=== PATIENT | female | born 1985 | race Asian ===

== ENCOUNTER 2024-03-04 09:36 | Emergency (ER) | payer OTHER, SELFPAY ==
--- NOTE | ~2024-03-04 | CT_ITS ---
EXAMINATION: CT cervical spine wo con DATE: 03/04/2024 11:44 INDICATION: Neck pain. Right shoulder numbness. Headache. TECHNIQUE: Computed tomography (CT) of the cervical spine was performed without intravenous contrast. Automated exposure control and iterative reconstruction technique were employed. The dose-length pro duct was 467.69 mGy-cm. COMPARISON: None FINDINGS: There is 12 degrees dextroscoliosis of cervical spine. There is mild kyphosis of cervical s pine. Vertebral body heights are normal. Intervertebral disc heights are normal. The following disc l evels are specifically discussed: C2-C3: There is no uncovertebral joint osteoarthritis. There is mild bilateral facet joint osteoarthr itis. There is no neural foraminal stenosis. There is no central canal stenosis. C3-C4: There is no uncovertebral joint osteoarthritis. There is moderate bilateral facet joint osteoa rthritis. There is mild left neural foraminal stenosis. There is no central canal stenosis. C4-C5: There is no uncovertebral joint osteoarthritis. There is no facet joint osteoarthritis. There is no neural foraminal stenosis. There is no central canal stenosis. C5-C6: There is no uncovertebral joint osteoarthritis. There is no facet joint osteoarthritis. There is no neural foraminal stenosis. There is no central canal stenosis. C6-C7: There is no uncovertebral joint osteoarthritis. There is no facet joint osteoarthritis. There is no neural foraminal stenosis. There is no central canal stenosis. C7-T1: There is no uncovertebral joint osteoarthritis. There is mild bilateral facet joint osteoarthr itis. There is no neural foraminal stenosis. There is no central canal stenosis. IMPRESSION: 1. Mild cervical spondylosis. 2. Cervical dextroscoliosis. Reviewed, dictated and finalized at location A.
--- NOTE | ~2024-03-04 | CT_ITS ---
EXAMINATION: CT brain wo con DATE: 03/04/2024 11:44 INDICATION: Headache. TECHNIQUE: Computed tomography (CT) of the head was performed without intravenous contrast. The mA wa s adjusted according to patient size. Iterative reconstruction technique was employed. The dose-lengt h product was 605.33 mGy-cm. COMPARISON: None FINDINGS: There is no intracranial hemorrhage, acute infarction, or abnormal intracranial mass lesion . The ventricles are normal in size. The orbits are normal. There is mucosal thickening in the parana shreya sinuses. There is a small right mastoid effusion. IMPRESSION: 1. Normal brain. Reviewed, dictated and finalized at location A. IMPRESSION: 1. Normal brain.
[2024-03-04 09:40] VITALS: BP 165/100; PULSE 68; RESP 18; TEMP 36.9; O2SAT 100
--- NOTE | 2024-03-04 11:10 | ED.GENADULT ---
HPI - General Adult General Chief complaint: Unspecified Stated complaint: I'm having health problems Time Seen by Provider: 03/04/24 11:07 Source: patient Mode of arrival: ambulatory Limitations: no limitations History of Present Illness HPI narrative: This is a 38-year-old female who presents to the ED for chief complaint of headache and neck pain this started over the past couple of days. Reports that the pain is intermittent but primarily located on the right side of the neck, sometimes on the left. Reports that she has had a recent cough and was treated with Z-Oumar and steroids but that is overall improving. She states that she started to see some squiggly lines in my vision? which was concerning for her today. She is reporting possible ocular migraine but does not have migraine history. Also complains of numbness/weakness only to the right shoulder. Reports that the rest of the right upper extremity is intact. Denies left-sided symptoms. Denies LOC, dysarthria, lower extremity numbness or weakness, seizures, neck stiffness, back pain. Related Data Allergies Allergy/AdvReac Type Severity Reaction Status Date / Time No Known Allergies Allergy Verified 03/04/24 12:03 Review of Systems Review of Systems: All systems as dictated in HPI Exam Narrative: GENERAL: Well-appearing, well-nourished, and in no acute distress. HEAD: Normocephalic, atraumatic. EYES: PERRLA and EOMI. No photophobia ENT: Nares clear, no rhinorrhea or epistaxis. Mucous membranes moist. Oropharynx without tonsillar hypertrophy exudate or other lesions. NECK: Supple. No adenopathy or masses. No signs of meningismus CHEST: No respiratory distress. Clear to auscultation. No wheezes rales or rhonchi HEART: Regular rate and rhythm. No murmur heard. Normal peripheral pulses. ABDOMEN: Soft, nontender, nondistended, normal active bowel sounds. MSK: Normal range of motion. No edema. SKIN: Warm, dry, no rash. NEURO: Alert and oriented x4. No focal deficits. Cranial nerves 2-12 intact. Coordination intact. No dysarthria. No nystagmus. PSYCH: Normal mood and affect. Course Course Emergency Course: Re-evaluation 1244: Patient is feeling overall improved. Neck pain and headache are much improved. She is still having a low altered sensation of the right shoulder but reports feeling maybe a little better compared to earlier. She feels well enough to go home at this point. Vital Signs Vital signs: Vital Signs Temperature 98.5 F 03/04/24 09:40 Pulse Rate 68 03/04/24 09:40 Respiratory Rate 18 03/04/24 09:40 Blood Pressure 165/100 H 03/04/24 09:40 Pulse Oximetry 100 03/04/24 09:40 Oxygen Delivery Room Air 03/04/24 09:40 Temperature 97.8 F 03/04/24 13:13 Pulse Rate 68 03/04/24 13:13 Respiratory Rate 17 03/04/24 13:13 Blood Pressure 148/97 H 03/04/24 13:13 Pulse Oximetry 98 03/04/24 13:13 Oxygen Delivery Room Air 03/04/24 09:40 Medical Decision Making MDM Narrative Medical decision making narrative: This is a 38-year-old female who presents to the ED for cough, neck pain and possible migraine. Vitals are normal. Exam shows tenderness along the paraspinal cervical spine, worse on the right. Lab work shows mildly elevated white count of 14.[address] brain and cervical spine are without acute findings. She improved greatly with headache cocktail here. Offered further evaluation in the hospital for this reported numbness to her right shoulder and visual disturbance, however she feels that this is been intermittent enough that she can go home. She does not feel she needs stay in the hospital and will follow-up with her doctor about this. Pt will be discharged in stable condition. Return precautions given and supportive measures discussed. Pt is understanding and agreeable with plan for discharge and follow-up with PCP. Vital Signs Vital Signs: Vital Signs Temperature 98.5 F 03/04/24 09:40 Pulse Rate 68 03/04/24 09:40 Respiratory Rate 18 03/04/24 09:40 Blood Pressure 165/100 H 03/04/24 09:40 Pulse Oximetry 100 03/04/24 09:40 Oxygen Delivery Room Air 03/04/24 09:40 Temperature 97.8 F 03/04/24 13:13 Pulse Rate 68 03/04/24 13:13 Respiratory Rate 17 03/04/24 13:13 Blood Pressure 148/97 H 03/04/24 13:13 Pulse Oximetry 98 03/04/24 13:13 Oxygen Delivery Room Air 03/04/24 09:40 Lab Data 03/04/24 12:08 03/04/24 12:08 Labs: Lab Results 03/04/24 Range/Units 12:08 WBC 14.1 H (4.5-10.0) K/mm3 RBC 5.43 H (4.2-5.4) M/mm3 Hgb 16.6 H (12.0-15.0) g/dL Hct 48.7 H (37.0-47.0) % MCV 89.7 (80-100) fl MCH 30.6 (26-34) pg MCHC 34.1 (32-36) g/dl RDW 12.3 (11.5-14.5) % Plt Count 266 (150-375) k/mm3 MPV 10.7 H (7.4-10.4) fl Immature Gran % (Auto) 0.6 H (0-0.5) % Neut % (Auto) 73.9 H (45.5-73.1) % Lymph % (Auto) 17.8 L (18.3-44.2) % [place] % (Auto) 6.2 (2.6-8.5) % Eos % (Auto) 1.1 (0-4.4) % Baso % (Auto) 0.4 (0.2-1.2) % Lymph # (Auto) 2.51 (0.9-3.2) K/mm3 [place] # (Auto) 0.9 H (0.1-0.6) K/mm3 Eos # (Auto) 0.2 (0-0.3) K/mm3 Baso # (Auto) 0.1 (0.0-0.1) K/mm3 Abs Immat Gran (auto) 0.08 H (0.00-0.031) K/mm3 Absolute Neuts (auto) 10.4 H (1.3-6.7) K/mm3 Absolute Nucleated RBC 0.000 (0.0-0.012) K/mm3 Nucleated RBC % 0.0 (0.0-0.2) % Sodium 137 (137-145) mmol/L Potassium 3.4 (3.4-5.0) mmol/L Chloride 98 (98-107) mmol/L Carbon Dioxide 29 (22-30) mmol/L Anion Gap 10 (4-12) mmol/L BUN 12 (7-17) mg/dL Creatinine 0.60 L (0.7-1.0) mg/dL Estim Creat Clear Calc 106 ml/min Estimated GFR > 60 (59 - ) Glucose 85 (65-110) mg/dL Calcium 9.4 (8.4-10.2) mg/dL Total Bilirubin 1.3 (0.2-1.3) mg/dL AST 18 (14-36) U/L ALT 15 (6-35) U/L Alkaline Phosphatase 105 (38-126) U/L Total Protein 9.0 H (6.3-8.2) g/dL Albumin 4.9 (3.5-5.1) g/dL Discharge Plan Discharge Clinical Impression: Headache, Neck pain Patient Disposition: Home, Self-Care Condition: Stable Instructions: Antibiotic Form Additional Instructions: Exam and imaging today are reassuring overall. Please follow-up closely with primary care doctor on this issue. Take with Tylenol and ibuprofen for headache or neck pain that arises. You can do this every 6 hours as needed. If you have any new or worsening symptoms please return to the ER for further evaluation. Follow-up/Referrals: Margaux Stevens DO [Physician] - Tee Gomes MD [Physician] - PHYSICIAN,[employer]LECT[employer]ING [Primary Care Provider] - Time of Disposition: 12:45
[2024-03-04] MEDS: METOCLOPRAMIDE HCL INJ 10 MG/2 ML VIAL 5 MG IV PUSH (12:04)
[2024-03-04] MEDS: diphenhydrAMINE HCl INJ 50 MG/ML VIAL 25 MG IV PUSH (12:05)
[2024-03-04] MEDS: KETOROLAC 15 MG/ML VIAL (*BKC) IV PUSH (12:06)
[2024-03-04 12:14] LABS: Basophils Absolute Auto 0.1 K/mm3 (0.0-0.1); Basophils Percent Auto 0.4 % (0.2-1.2); Eosinophils Absolute Auto 0.2 K/mm3 (0-0.3); Eosinophils Percent Auto 1.1 % (0-4.4); Hematocrit 48.7 % (37.0-47.0); Hemoglobin 16.6 g/dL (12.0-15.0); Immature Granulocyte Absolute 0.08 K/mm3 (0.00-0.031); Immature Granulocyte Percent A 0.6 % (0-0.5); Lymphocytes Absolute Auto 2.51 K/mm3 (0.9-3.2); Lymphocytes Percent Auto 17.8 % (18.3-44.2); Mean Corpuscular HGB Conc 34.1 g/dl (32-36); Mean Corpuscular Hemoglobin 30.6 pg (26-34); Mean Corpuscular Volume 89.7 fl (80-100); Mean Platelet Volume 10.7 fl (7.4-10.4); Monocytes Absolute Auto 0.9 K/mm3 (0.1-0.6); Monocytes Percent Auto 6.2 % (2.6-8.5); Neutrophils Absolute Auto 10.4 K/mm3 (1.3-6.7); Neutrophils Percent Auto 73.9 % (45.5-73.1); Platelet Count Result 266 k/mm3 (150-375); Red Blood Count 5.43 M/mm3 (4.2-5.4); Red Cell Distribution Width 12.3 % (11.5-14.5); White Blood Count 14.1 K/mm3 (4.5-10.0)
[2024-03-04 12:26] LABS: Alanine Aminotransferase 15 U/L (6-35); Albumin Level 4.9 g/dL (3.5-5.1); Alkaline Phosphatase 105 U/L (38-126); Anion Gap 10 mmol/L (4-12); Aspartate Amino Transferase 18 U/L (14-36); Bilirubin,Total 1.3 mg/dL (0.2-1.3); Blood Urea Nitrogen 12 mg/dL (7-17); Calcium 9.4 mg/dL (8.4-10.2); Carbon Dioxide 29 mmol/L (22-30); Chloride 98 mmol/L (98-107); Estimated CRCL calculation 106 ml/min; Estimated Glomerular Filt Rate > 60; Glucose 85 mg/dL (65-110); Potassium 3.4 mmol/L (3.4-5.0); Sodium 137 mmol/L (137-145)
[2024-03-04 13:13] VITALS: BP 148/97; PULSE 68; RESP 17; TEMP 36.6; O2SAT 98
== END 2024-03-04 12:59 | disposition home or self-care (01) ==
PROVIDERS: Emergency Provider Physician Assistant
DX: R51.9 Headache, unspecified (principal); M54.2 Cervicalgia
CPT/HCPCS: 36415; 70450; 72125; 80053; 85025; 96374; 96375; 99284; J1200; J1885; J2765

== ENCOUNTER 2025-02-12 13:38 | Emergency (ER) | payer OTHER, SELFPAY ==
--- NOTE | ~2025-02-12 | CT_ITS ---
Fouzia Colindres EXAMINATION: CT abdomen pelvis w con COMPARISON: None HISTORY: nvd, pain, leukocytosis TECHNIQUE: Axial images were obtained through the abdomen, pelvis post administration of IV contrast. Oral contrast was also administered. Coronal reconstruction images were obtained from the axial views. CT scan performed using dose optimization techniques including the following automated exposure control; adjustment of mA and/or kV; use of iterative reconstruction technique. Automatic exposure control was used to reduce radiation dose. Permanent radiation dose record is archived to PACS. FINDINGS: CT abdomen: LUNG BASES: The lung bases are clear. The visualized portions of the heart and pericardium are unremarkable. LIVER: Mild hepatic steatosis. SPLEEN: Unremarkable. KIDNEYS: Right Kidney: Right renal calculi, largest mid pole 3 mm, no hydronephrosis or hydroureter. Left Kidney: Unremarkable. No calculi. No hydronephrosis ADRENAL GLANDS: Unremarkable. PANCREAS: Unremarkable. GALLBLADDER/BILIARY: Unremarkable. No biliary dilatation. STOMACH AND ESOPHAGUS: Visualized stomach and esophagus within normal limits. BOWEL/MESENTERY: No colitis or diverticulitis. Appendix normal. Mesentery normal. No dilated small bowel loops. ADENOPATHY/RETROPERITONEUM: No lymphadenopathy. AORTA/VASCULATURE: Normal caliber aorta. FREE FLUID OR FREE AIR: None. CT pelvis: SOLID ORGANS/REPRODUCTIVE: IUD within the uterine cavity. BLADDER: Within normal limits. OSSEOUS STRUCTURES: No acute osseous abnormality.No suspicious lesions. OVERLYING SOFT TISSUES: Unremarkable. IMPRESSION: Right renal calculi. No hydronephrosis or hydroureter. Reviewed, dictated and finalized at location P.
--- OUTSIDE RECORDS SUMMARY | 2025-02-12 13:40 | XMS_ITS | Clinical Summary ---
Author Organization [email or web address] Address [address] [place] [address] Care Team Providers Care Residential Designer Name Role Phone Naveen Diamond MD Primary Care Provider Source Comments [email or web address],non-owned Affiliates and Associated Physician Practices is amultiple site organization consisting of ambulatory clinics and hospital sitesin [place], [place], [place] and [place]. This disclosure is being madepursuant to the Care Everywhere program and may not contain all information available regarding this patient. Last updated 18.[email or web address] Medications * Be aware that medications may not be up to date on this document. Alwaysverify current medications with the patient. norgestim-eth estrad triphasic (TRINESSA LO) tablet 5 09/07/2016 Active Vit-Fe Fumarate-FA (PREPLUS) 27-1 MG TABS TAKE 1 TABLET BY MOUTH DAILY 90 tablet 3 03/24/2018 Active Active Problems No known active problems Immunizations Immunization Administration Dates Next Due TDAP (7yrs+) 12/18/2018 Social History Tobacco Use Types Packs/Day Years Used Date Smoking Tobacco: Every Day Cigarettes Smokeless Tobacco: Never Alcohol Use Standard Drinks/Week Comments Yes 0 (1 standard drink = 0.6 oz pur e alcohol) Comments Unknown Sex and Gender Information Value Date Recorded Sex Assigned at Not on file 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 Gender Identity Not on file Sexual Orientation Not on file Last Filed Vital Signs Vital Sign Reading Time Taken Comments Blood Pressure 154/86 10/21/2016 10:17 AM CDT Pulse - - Temperature - - Respiratory Rate - - Oxygen Saturation - - Inhaled Oxygen Concentration - - Weight 79.4 kg (175 lb) 10/21/2016 10:17 AM CDT Height 158.8 cm (5' 2.5) 10/21/2016 10:17 AM CD T Body Mass Index 31.5 10/21/2016 10:17 AM CDT Plan of Treatment Health Maintenance Due Date Last Done Comments HIV SCREENING 2001 HEPATITIS C SCREENING 12/21/2004 HEPATITIS B VACCINE (1 of 3 - 19+ 3-dose series) 2005 HPV VACCINE (1 - 3-dose SCDM series) 2013 DEPRESSION SCREENING 05/11/2024 COVID-19 VACCINE ( - 2023-2 5 season) 2025 INFLUENZA VACCINE (#1) 2025 DTAP/TDAP/TD VACCINES (2 - T d or Tdap) 12/18/2028 12/18/2018 ZOSTER VACCINE (1 of 2) 2036 HIB VACCINE Aged Out No longer eligi ble based on patient's age to complete this topic MENINGOCOCCAL (Group B) VACC INE SHARED DECISION-MAKING Aged Out No longer eligibl e based on patient's age to complete this topic MENINGOCOCCAL GROUPS A/C/Y/W VACCINE Aged Out No longer eligible b ased on patient's age to complete this topic PNEUMOCOCCAL VACCINE Aged Out No long er eligible based on patient's age to complete this topic Insurance [facility] Address: [facility] [id number] [place] [address] [facility] Address: [facility] [id number] [place] [phone] Care Teams Residential Designer Relationship Specialty Start Date End Date Naveen Diamond MD [address] [place] [id number] PCP - General Family Medicine 12/18/18
--- OUTSIDE RECORDS SUMMARY | 2025-02-12 13:40 | XMS_ITS | Data Portability ---
Author Organization [facility] Address [address] [place] [address] [place] [address] Assessment Encounter Date Assessment Date Assessment LastModified by Organization Details LastModified Time 08/12/2021 08/12/2021 Annual gynecological exam performed. Patient will come back in a year unless there are new symptoms. Not available 08/12/2021 10:10:36 11/19/2023 11/19/2023 Annual gynecological exam performed. Patient will come back in a year unless there are new symptoms. [email or web address] Not available 11/18/2023 16:12:45 Plan of Treatment Reminders Order Date Submit Date Provider Last Modified By Organization Details Last Modified Time Details Appointments None recorded. Lab test, urine 2023 024 [address], [place], [address], 14:57:15 CBC w/ auto diff 2021 [facility] (Lab), [address], [place], [address], 04:16:50 CMP, serum or plasma 2021 [facility] (Lab), [address], [place], [address], 2 04:16:50 lipid panel, blood 2021 022 [facility] (Lab), [address] [facility], [place], [address], 2 04:16:49 TSH, serum or plasma 2021 [facility] (Lab), [address] [facility], [place], [address], 2 04:16:51 vitamin D, 25-hydroxy, total, serum 2021 [facility] (Lab), [address] [facility], [place], [address], 2 04:16:51 Referral None recorded. Procedures None recorded. Surgeries None recorded. Imaging None recorded. Medication Orders Mirena 21 mcg/24 hr (up to 8 years) 52 mg intrauterin e device 2023 024 [id number], [address], [place], [place], [id number], 4 14:57:13 norethindro ne (contracept myriam) 0.35 mg tablet 2021 022 [email or web address] [facility] #[id number], [address], [place], [place], [id number], 4 10:11:17 Patient TargetsNo targets recorded. Patient InstructionsNo instructions recorded. Reason for Referral None Reported. Results Created Date Observation Date Name Description Value Unit Range Abnormal Flag Note LastModifiedBy Organization Detail LastModifiedTime 06/06/19 22 06/06/2021 HEMOG LOBIN A1C hemoglobin A1C 6.0 % 0-5.6 high The Ameri can [employer] larry [employer] iatio n recom mends that a prima ry goal of thera py jerrellul d be a HBA1C of < 7% and that physi cians shoul d reeva luate the treat ment regim en in patie nts with HBA1C value s consi stent ly > 8%. <5.7% Tatum l 5.7 - 6.4% Incre ased risk for diabe larry >=6.5 % Diagn ostic of diabe larry <7.0% Goal of thera py >8.0% Actio n sugge sted Not Available [facility] (Lab) [address] [place], [address], 06/07/2021 04:20:48 08/13/19 22 08/12/2021 LIPID PANEL ,AMA (LDL- CALC) total cholesterol 156 mg/dL 0-199 Not Available [facility] (Lab) [address] [place], [address], 08/13/2021 04:16:49 08/13/19 22 08/12/2021 LIPID PANEL ,AMA (LDL- CALC) triglyceride s 211 mg/dL 0.00-1 50.00 high NCEP Refer ence Value s for Trigl yceri stu: Tatum l: <150 mg/dL Borde rline High: 150 - 199 mg/dL High: 200 - 499 mg/dL Very High: >/= 500 mg/dL Not Available [facility] (Lab) [address] [place], [address], 08/13/2021 04:16:49 08/13/19 22 08/12/2021 LIPID PANEL ,AMA (LDL- CALC) HDL cholesterol 61 mg/dL >40 Not Available [facility] (Lab) [address] [place], [address], 08/13/2021 04:16:49 08/13/19 22 08/12/2021 LIPID PANEL ,AMA (LDL- CALC) LDL cholesterol 53 mg/dL 0-99 Cutof f value s recom ronel d by the Natio nal Claudia stero l Educa tion Progr am: VANESA ABLE: Claudia stero l <200 mg/dL LDL <100 mg/dL BORDE RLINE : Claudia stero l 200-2 39 mg/dL LDL 101-1 59 mg/dL HIGHE R RISK: Claudia stero l >240 mg/dL LDL >160 mg/dL , HDL <40 mg/dL Not Available [facility] (Lab) [address] [facility] [place], [address], 08/13/2021 04:16:49 08/13/19 22 08/12/2021 LIPID PANEL ,AMA (LDL- CALC) non-HDL cholesterol 95 mg/dL no refere nce range A reaso nable goal for non-H DL claudia stero l is one that is 30 mg/dL highe r than the LDL claudia stero l goal. Not Available [facility] (Lab) [address] [facility], [place], [address], 08/13/2021 04:16:49 08/13/19 22 08/12/2021 LIPID PANEL ,AMA (LDL- CALC) chol/HDL ratio 2.6 . 0.0-5. 0 Not Available [facility] (Lab) [address] [facility], [place], [address], 08/13/2021 04:16:49 08/13/19 22 08/12/2021 CMP(C OMPRE HENSI VE METAB OLIC PANEL ) sodium 140 mmol/ L 133-14 6 Not Available [facility] (Lab) [address] [facility], [place], [address], 08/13/2021 04:16:50 08/13/19 22 08/12/2021 CMP(C OMPRE HENSI VE METAB OLIC PANEL ) potassium 4.0 mmol/ L 3.5-5. 1 Not Available [facility] (Lab) [address] [facility], [place], [address], 08/13/2021 04:16:50 08/13/19 22 08/12/2021 CMP(C OMPRE HENSI VE METAB OLIC PANEL ) chloride 103 mmol/ L 98-107 Not Available [facility] (Lab) [address] [facility], [place], [address], 08/13/2021 04:16:50 08/13/19 22 08/12/2021 CMP(C OMPRE HENSI VE METAB OLIC PANEL ) carbon dioxide 27 mmol/ L 21-31 Not Available [facility] (Lab) [address] [facility], [place], [address], 08/13/2021 04:16:50 08/13/19 22 08/12/2021 CMP(C OMPRE HENSI VE METAB OLIC PANEL ) anion gap 10 mmol/ L 4-13 Not Available [facility] (Lab) [address] [facility], [place], [address], 08/13/2021 04:16:50 08/13/19 22 08/12/2021 CMP(C OMPRE HENSI VE METAB OLIC PANEL ) blood urea nitrogen 16 mg/dL 7-25 Not Available [facility] (Lab) [address] [facility], [place], [address], 08/13/2021 04:16:50 08/13/19 22 08/12/2021 CMP(C OMPRE HENSI VE METAB OLIC PANEL ) creatinine 0.75 mg/dL 0.60-1 .30 Not Available [facility] (Lab) [address] [facility], [place], [address], 08/13/2021 04:16:50 08/13/19 22 08/12/2021 CMP(C OMPRE HENSI VE METAB OLIC PANEL ) egfrcr (CKD-epi 2020) >90 mL/mi n/1.7 3_m2 >=60 Not Available [facility] (Lab) [address] [place], [address], 08/13/2021 04:16:50 08/13/19 22 08/12/2021 CMP(C OMPRE HENSI VE METAB OLIC PANEL ) calcium 10.2 mg/dL 8.3-10 .5 Not Available [facility] (Lab) [address] [place], [address], 08/13/2021 04:16:50 08/13/19 22 08/12/2021 CMP(C OMPRE HENSI VE METAB OLIC PANEL ) glucose 106 mg/dL 70-100 high Not Available [facility] (Lab) [address] [place], [address], 08/13/2021 04:16:50 08/13/19 22 08/12/2021 CMP(C OMPRE HENSI VE METAB OLIC PANEL ) protein, total 7.5 g/dL 6.4-8. 3 Not Available [facility] (Lab) [address] [facility], [place], [address], 08/13/2021 04:16:50 08/13/19 22 08/12/2021 CMP(C OMPRE HENSI VE METAB OLIC PANEL ) albumin 4.4 g/dL 3.5-5. 0 Not Available [facility] (Lab) [address] [facility], [place], [address], 08/13/2021 04:16:50 08/13/19 22 08/12/2021 CMP(C OMPRE HENSI VE METAB OLIC PANEL ) ALT 26 units /L 9-43 Not Available [facility] (Lab) [address] [facility], [place], [address], 08/13/2021 04:16:50 08/13/19 22 08/12/2021 CMP(C OMPRE HENSI VE METAB OLIC PANEL ) alkaline phosphatase 116 units /L 34-104 high Not Available [facility] (Lab) [address] [facility], [place], [address], 08/13/2021 04:16:50 08/13/19 22 08/12/2021 CMP(C OMPRE HENSI VE METAB OLIC PANEL ) AST 17 units /L 13-39 Not Available [facility] (Lab) [address] [facility], [place], [address], 08/13/2021 04:16:50 08/13/19 22 08/12/2021 CMP(C OMPRE HENSI VE METAB OLIC PANEL ) bilirubin, total 0.7 mg/dL 0.2-1. 2 Not Available [facility] (Lab) [address] [facility], [place], [address], 08/13/2021 04:16:50 08/13/19 22 08/12/2021 CBC W/DIF F WBC 7.0 10'3/ uL 3.6-10 .2 Not Available [facility] (Lab) [address] [facility], [place], [address], 08/13/2021 04:16:50 08/13/19 22 08/12/2021 CBC W/DIF F RBC 4.90 10'6/ uL (based on docume nted legal sex) 4.10-5 .30 Not Available [facility] (Lab) [address] [facility], [place], [address], 08/13/2021 04:16:50 08/13/19 22 08/12/2021 CBC W/DIF F HGB 13.5 g/dL (based on docume nted legal sex) 11.9-1 5.8 Not Available [facility] (Lab) [address] [facility] [address] [facility], [place], [address], 08/13/2021 04:16:50 08/13/19 22 08/12/2021 CBC W/DIF F HCT 42.7 % (based on docume nted legal sex) 37.4-4 8.3 Not Available [facility] (Lab) [address] [facility], [place], [address], 08/13/2021 04:16:50 08/13/19 22 08/12/2021 CBC W/DIF F MCV 88.0 fL 82.0-9 9.0 Not Available [facility] (Lab) [address] [facility], [place], [address], 08/13/2021 04:16:50 08/13/19 22 08/12/2021 CBC W/DIF F MCH 28.0 pg 27.0-3 3.0 Not Available [facility] (Lab) [address] [facility], [place], [address], 08/13/2021 04:16:50 08/13/19 22 08/12/2021 CBC W/DIF F MCHC 32.0 g/dL 32.0-3 6.0 Not Available [facility] (Lab) [address] [facility], [place], [address], 08/13/2021 04:16:50 08/13/19 22 08/12/2021 CBC W/DIF F RDW 15.0 % 11.0-1 5.0 Not Available [facility] (Lab) [address] [facility], [place], [address], 08/13/2021 04:16:50 08/13/19 22 08/12/2021 CBC W/DIF F plt 244 10'3/ uL 150-45 0 Not Available [facility] (Lab) [address] [facility], [place], [address], 08/13/2021 04:16:50 08/13/19 22 08/12/2021 CBC W/DIF F MPV 12.0 fL 9.8-12 .7 Not Available [facility] (Lab) [address] [facility], [place], [address], 08/13/2021 04:16:50 08/13/19 22 08/12/2021 CBC W/DIF F NRBC's 0.00 % 0 Not Available [facility] (Lab) [address] [facility], [place], [address], 08/13/2021 04:16:50 08/13/19 22 08/12/2021 CBC W/DIF F absolute NRBCs 0.0 10'3/ uL 0 Not Available [facility] (Lab) [address] [facility], [place], [address], 08/13/2021 04:16:50 08/13/19 22 08/12/2021 CBC W/DIF F neutrophils 67.0 % 37.0-7 2.0 Not Available [facility] (Lab) [address] [facility], [place], [address], 08/13/2021 04:16:50 08/13/19 22 08/12/2021 CBC W/DIF F lymphocytes 19.0 % 16.0-4 8.0 Not Available [facility] (Lab) [address] [place], [address], 08/13/2021 04:16:50 08/13/19 22 08/12/2021 CBC W/DIF F monocytes 9.0 % 4.0-14 .0 Not Available [facility] (Lab) [address] [facility], [place], [address], 08/13/2021 04:16:50 08/13/19 22 08/12/2021 CBC W/DIF F eosinophils 4.0 % 0.0-9. 0 Not Available [facility] (Lab) [address] [facility], [place], [address], 08/13/2021 04:16:50 08/13/19 22 08/12/2021 CBC W/DIF F basophils 1.0 % 0.0-2. 0 Not Available [facility] (Lab) [address] [facility], [place], [address], 08/13/2021 04:16:50 08/13/19 22 08/12/2021 CBC W/DIF F immature granulocytes 0.0 % no define d refere nce range Not Available [facility] (Lab) [address] [facility], [place], [address], 08/13/2021 04:16:50 08/13/19 22 08/12/2021 CBC W/DIF F absolute neutrophils 4.7 10'3/ uL 1.1-6. 0 Not Available [facility] (Lab) [address] [place], [address], 08/13/2021 04:16:50 08/13/19 22 08/12/2021 CBC W/DIF F absolute lymphocytes 1.3 10'3/ uL 0.7-3. 4 Not Available [facility] (Lab) [address] [place], [address], 08/13/2021 04:16:50 08/13/19 22 08/12/2021 CBC W/DIF F absolute monocytes 0.6 10'3/ uL 0.3-1. 0 Not Available [facility] (Lab) [address] [facility], [place], [address], 08/13/2021 04:16:50 08/13/19 22 08/12/2021 CBC W/DIF F absolute eosinophils 0.3 10'3/ uL 0.0-0. 6 Not Available [facility] (Lab) [address] [facility], [place], [address], 08/13/2021 04:16:50 08/13/19 22 08/12/2021 CBC W/DIF F absolute basophils 0.0 10'3/ uL 0.0-0. 1 Not Available [facility] (Lab) [address] [facility], [place], [address], 08/13/2021 04:16:50 08/13/19 22 08/12/2021 CBC W/DIF F absolute immature granulocytes 0.00 10'3/ uL 0.00-0 .10 2:42 AM: P indic ates parti al resul ts on a panel have been relea sed. Addit ional resul ts will follo w. 2:43 AM: This resul t has been final verif ied. No addit ional or iqbal ed resul ts are expec clint. Not Available [facility] (Lab) [address] [facility], [place], [address], 08/13/2021 04:16:50 08/13/19 22 08/12/2021 TSH, REFLE X FREE T4 TSH 0.94 uIU/m L 0.30-5 .33 Not Available [facility] (Lab) [address] [facility], [place], [address], 08/13/2021 04:16:51 08/13/19 22 08/12/2021 VITAM IN D, 25-OH (TOTA L D2/D3 ) vitamin D, 25-hydroxy, total 8.3 NG/mL 30-80 low NOTE: Defic iency : <20 ng/mL Insuf ficie ncy: 20-29 ng/mL Optim um Level : 30-80 ng/mL Possi ble Toxic ity: >80 ng/mL Most patie nts with toxic ity have level s >150 ng/mL . Not Available [facility] (Lab) [address] [facility], [place], [address], 08/13/2021 04:16:51 08/13/19 22 08/12/2021 IMAGE GUIDE D PAP AND HPV REGAR DLESS image guided Pap, HPV regardless of Pap result SEE RESULT S BELOW CASE REPOR T: Cytol ogy Gynec ologi jeff Repor t Case: [id number] Autho marianbetito silvano Provi daniela: Bryce Ross MD Colle cted: 08/12 1214 Order ing Locat ion: [place] [facility] Recei brock: 08/13 0123 First Scree n: Kristel garcia, David nunez, CT Rescr een: Sarwat Schmidt, CT Speci men: Scree cece Pap - Image d, Cervi x STATE MENT OF ADEQU ACY: Satis facto ry for evalu ation Trans forma tion zone compo nent prese nt FINAL DIAGN OSIS: Negat myriam for Intra epith elial Lesio n or Jonn kapoor (NIL) . Blake cruz shahida d by Sarwat Schmidt, CT on 2021 at 10:15 AM ----- ----- ----- ----- ----- ----- ----- ----- ----- ----- ----- ----- ----- ----- ----- ----- ----- ---- HPV RESUL TS: HPV mRNA E6/E7 : No HPV mRNA Detec clint NOTE: This high risk HPV mRNA assay detec ts fourt een high- risk HPV types (16, 18, 31, 33, 35, 39, 45, 51, 52, 56, 58, 59, 66, 68) witho ut diffe renti ation . COMME NT: Note: This speci men was revie wed by a Cytot echno logis t and/o r Patho logis t (as indic ated in this repor t) after evalu ation using the Thinp rep Imagi ng Syste m. CLINI JEFF INFOR MATIO N: Menst rual Statu s: LMP (if appli cable ): Clini jeff Histo ry/Pr eviou s Pap: Type of Neopl mic (if appli cable ): Signi fican t Clini jeff Findi ngs: Other Histo ry: Hormo jenae (if appli cable ): PAP EDUCA ELICIA L NOTE: The Pap Test is a scree cece test with an inher ent false negat myriam rate. Liqui d-bas ed sampl ing may decre ase, but will not elimi katelyn, false negat myriam resul ts. A negat myriam resul t does not precl ude the prese nce and/o r devel opmen t of disea se, since the prese nce of abnor mal cells in the sampl e depen ds on the locat ion of the lesio n and sampl ing techn ique. Ivory nued regul ar scree cece is the best metho d of cance r preve ntion . If repor clint cytol ogic findi ng do not corre late with physi jeff and/o r histo rical findi ngs, furth er inves tigat ion is recom ronel d, as clini mary saenz nted. Not Available [facility] (Lab) [address] [facility], [place], [address], 08/19/2021 11:18:35 11/19/19 24 11/19/2023 IMAGE GUIDE D PAP AND HPV REGAR DLESS image guided Pap, HPV regardless of Pap result SEE RESULT S BELOW CASE REPOR T: Cytol ogy Gynec ologi jeff Repor t Case: [id number] Autho rizin g Provi daniela: Ana Reagan, ICHTHYOLOGIST Colle cted: 11/18 1223 Order ing Locat ion: [place] [facility] [place] Recei brock: 11/19 0619 First Scree n: Eduardo galloway, Afsaneh bennett, CT Speci men: Quan zhao Pap - Image d, Cervi x STATE MENT OF ADEQU ACY: Satis facto ry for evalu ation Trans forma tion zone compo nent prese nt ----- ----- ----- ----- ----- ----- ----- ----- ----- ----- ----- ----- ----- ----- ----- ----- ----- ---- FINAL DIAGN OSIS: Negat myriam for Intra epith elial Jordon garcia or Jonn kapoor ([facility]) . Elect tristan cruz shahida d by Afsaneh Mitchell ed, CT on 2023 at 10:40 PM ----- ----- ----- ----- ----- ----- ----- ----- ----- ----- ----- ----- ----- ----- ----- ----- ----- ---- HPV RESUL TS: HPV mRNA E6/E7 : No HPV mRNA Detec clint NOTE: This high risk HPV mRNA assay detec ts fourt een high- risk HPV types (16, 18, 31, 33, 35, 39, 45, 51, 52, 56, 58, 59, 66, 68) witho ut diffe renti ation . COMME NT: This speci men was revie wed by a Cytot echno logis t and/o r Patho logis t (as indic ated in this repor t) after evalu ation using the Thinp rep Imagi ng Syste m. CLINI JEFF INFOR MATIO N: Menst rual Statu s: LMP (if appli cable ): Clini jeff Histo ry/Pr eviou s Pap: Type of Neopl mic (if appli cable ): Signi fican t Clini jeff Findi ngs: Other Histo ry: Hormo jenae (if appli cable ): PAP EDUCA ELICIA L NOTE: The Pap Test is a scree cece test with an inher ent false negat myriam rate. Liqui d-bas ed sampl ing may decre ase, but will not elimi katelyn, false negat myriam resul ts. A negat myriam resul t does not precl ude the prese nce and/o r devel opmen t of disea se, since the prese nce of abnor mal cells in the sampl e depen ds on the locat ion of the lesio n and sampl ing techn ique. Ivory nued regul ar scree cece is the best metho d of cance r preve ntion . If repor clint cytol ogic findi ng do not corre late with physi jeff and/o r histo rical findi ngs, furth er inves tigat ion is recom ronel d, as clini mary warra nted. Not Available [facility] (Lab) [address] [facility], [place], [address], 11/23/2023 23:46:38 12/18/19 24 12/18/2023 pregn estuardo test, urine HCG negati ve Not Available [address], [place], [address], 12/18/2023 14:56:04 05/28/19 22 05/28/2021 US, obste tric, follo w-up No observ ation record ed. [email or web address] [address], [place], [address], 05/28/2021 16:52:38 05/28/19 22 05/28/2021 US, obste tric, follo w-up No observ ation record ed. [email or web address] [address], [place], [address], 05/30/2021 10:42:58 05/30/19 22 05/30/2021 non-s tress test No observ ation record ed. [email or web address] [address], [place], [address], 05/30/2021 15:13:37 06/06/19 22 06/06/2021 US, obste tric, follo w-up No observ ation record ed. [email or web address] [address], [place], [address], 06/06/2021 10:24:03 06/06/19 22 06/06/2021 US, obste tric, follo w-up No observ ation record ed. [email or web address] [address], [place], [address], 06/06/2021 16:09:58 06/10/19 22 06/10/2021 US, obste tric, follo w-up No observ ation record ed. [email or web address] [facility] [address], [place], [address], 06/11/2021 11:11:04 Result Notes None recorded. 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 2 15:02:53 Large for gestatio n age fetus [id number] 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 1 11:40:04 Pregnanc y detectio n examinat ion Completed 201811/19/2020 Encounte r for pregnanc y test, result positive ;Recorde d Elsewher e: No [facility]: EHR Wafer Polishing Worker crista: Thanh Kumar ce ID: [id number] Jair lable Time: 03:30:00 PM Josephine Woodson MD [address], [place], [address], [facility] 1 11:39:51 Antenata l screenin g Completed 201811/19/2020 Encounte r for antenata l screenin g for nuchal transluc ency;Rec orded Elsewher e: No Locat ion: [facility] S ource: EHR Wafer Polishing Worker crista: Thanh Kumar ce ID: [id number] Jair lable Time: 10:30:00 AM Josephine Woodson MD [address], [place], [address], [facility] 1 11:39:24 Pregnanc y, childbir th and puerperi um finding Completed 201811/19/2020 Encntr for suprvsn of normal first preg, first trimeste r;Record ed Elsewher e: No Locat ion: [facility] S ource: EHR Wafer Polishing Worker crista: N José ce ID: [id number] Jair lable Time: 01:30:00 PM Josephine Woodson MD [address], [place], [address], [facility] 1 11:39:55 Pregnanc y, childbir th and puerperi um finding Completed 201811/19/2020 Encntr for suprvsn of normal first preg, second trimeste r;Record ed Elsewher e: No [facility]at [facility] S [facility]: EHR Wafer Polishing Worker crista: N José ce ID: [id number] Jair lable Time: 01:00:00 PM Josephine Woodson MD [address], [place], [address], [facility] 1 11:39:57 Pregnanc y, childbir th and puerperi um finding Completed 201811/19/2020 Encounte r for supervis ion of normal 1st pregnanc y;Record ed Elsewher e: No Locat ion: Parker cochran [facility] S ource: EHR Wafer Polishing Worker crista: N Omkarti ce ID: [id number] Jair lable Time: 10:00:00 AM Josephine Woodson MD [address], [place], [address], [facility] 11:39:53 Diet educatio n Completed 201811/19/2020 Dietary counseli ng and surveill ance;Rec orded Elsewher e: No [facility] S ource: EHR Wafer Polishing Worker crista: N Omkarti ce ID: [id number] Jair lable Time: 01:30:00 PM Josephine Woodson MD [address], [place], [address], [facility] 11:39:26 Dietary manageme nt surveill ance Completed 201811/19/2020 Dietary counseli ng and surveill ance;Rec orded Elsewher e: No [facility] S ource: EHR Wafer Polishing Worker crista: N Omkarti ce ID: [id number] Jair lable Time: 01:30:00 PM Josephine Woodson MD [address], [place], [address], [facility] 1 11:39:28 Gestatio n period, 29 weeks [id number] Completed 201811/19/2020 29 weeks gestatio n of pregnanc y;Record ed Elsewher e: No [facility] [facility] S ource: EHR Wafer Polishing Worker crista: N Practi ce ID: [id number] Jair lable Time: 01:30:00 PM Josephine Woodson MD [address], [place], [address], [facility] 1 11:39:30 Gestatio n period, 31 weeks [id number] Completed 201811/19/2020 31 weeks gestatio n of pregnanc y;Record ed Elsewher e: No Locat ion: [facility] co[facility] S ource: EHR Wafer Polishing Worker crista: N Practi ce ID: [id number] Jair lable Time: 03:00:00 PM Josephine Woodson MD [address], [place], [address], [facility] 11:39:32 Gestatio nal diabetes mellitus 71017050 Completed 201811/19/2020 Gestatio nal diabetes mellitus in pregnanc y, diet controll ed;Recor ded Elsewher e: No Locat ion: [facility] S ource: EHR Wafer Polishing Worker crista: N Practi ce ID: [id number] Jair lable Time: 10:30:00 AM Josephine Woodson MD [address], [place], [address], [facility] 11:39:47 Gestatio n period, 32 weeks [id number] Completed 201811/19/2020 32 weeks gestatio n of pregnanc y;Record ed Elsewher e: No Locat ion: [facility] S ource: EHR Wafer Polishing Worker crista: N Practi ce ID: [id number] Jair lable Time: 10:30:00 AM Josephine Woodson MD [address], [place], [address], [facility] 11:39:34 Gestatio n period, 33 weeks [id number] Completed 201811/19/2020 33 weeks gestatio n of pregnanc y;Record ed Elsewher e: No Locat ion: [facility] S ource: EHR Wafer Polishing Worker crista: N Practi ce ID: [id number] Jair lable Time: 03:00:00 PM Josephine Woodson MD [address], [place], [address], [facility] 11:39:37 Gestatio n period, 34 weeks [id number] Completed 201811/19/2020 34 weeks gestatio n of pregnanc y;Record ed Elsewher e: No Locat ion: [facility] co[facility] S ource: EHR Wafer Polishing Worker crista: N Practi ce ID: [id number] Jair lable Time: 01:00:00 PM Josephine Woodson MD [address], [place], [address], [facility] 11:39:38 Pregnanc y, childbir th and puerperi um finding Completed 201811/19/2020 Encntr for suprvsn of normal first preg, third trimeste r;Record ed Elsewher e: No Locat ion: [facility] co[facility] S ource: EHR Wafer Polishing Worker crista: N José ce ID: [id number] Jair lable Time: 02:15:00 PM Josephine Woodson MD [address], [place], [address], [facility] 11:39:59 Gestatio n period, 35 weeks [id number] Completed 201811/19/2020 35 weeks gestatio n of pregnanc y;Record ed Elsewher e: No Locat ion: [facility] S ource: EHR Wafer Polishing Worker crista: N José ce ID: [id number] Jair lable Time: 01:30:00 PM Josephine Woodson MD [address], [place], [address], [facility] 11:39:40 Gestatio n period, 36 weeks [id number] Completed 201811/19/2020 36 weeks gestatio n of pregnanc y;Record ed Elsewher e: No Locat ion: [facility] S ource: EHR Wafer Polishing Worker crista: N Practi ce ID: [id number] Jair lable Time: 01:00:00 PM Josephine Woodson MD [address], [place], [address], [facility] 11:39:42 Gestatio n period, 37 weeks [id number] Completed 201811/19/2020 37 weeks gestatio n of pregnanc y;Record ed Elsewher e: No Locat ion: [facility] S ource: EHR Wafer Polishing Worker crista: N Practi ce ID: [id number] Jair lable Time: 03:00:00 PM Josephine Woodson MD [address], [place], [address], [facility] 11:39:44 Lochia finding Completed 201811/19/2020 Encounte r for routine postpart um follow-u p;Record ed Elsewher e: No [facility] E[facility] Wafer Polishing Worker crista: N Practi ce ID: [id number] Jair lable Time: 02:15:00 PM Josephine Woodson MD [address], [place], [address], [facility] 11:39:49 Single live from singleto n pregnanc y [id number] Completed 201811/19/2020 Single live ;Re corded Elsewher e: No Locat ion: [facility] S ource: EHR Wafer Polishing Worker crista: N Practi ce ID: [id number] Jair lable Time: 02:15:00 PM Josephine Woodson MD [address], [place], [address], [facility] 11:40:02 Family history of cleft palate with cleft lip 468199345 Active 2020 Josephine Woodson MD [address], [place], [address], [facility] 1 14:15:33 Ex-smoke r 5385279 Active 2020 Josephine Woodson MD [address], [place], [address], [facility] 1 14:15:35 Past pregnanc y history of gestatio nal diabetes mellitus 037814305 Active 2020 early gct screenin g @ 26wks WN Malina fraire null, [facility] 2 15:02:53 Past pregnanc y history of gestatio nal diabetes mellitus 410166467 Completed 2020 early gct screenin g @ 26wks WN Malina fraire null, [facility] 2 15:02:53 Pregnanc y 96037232 Completed 202006/21/2021 Malina Montalvopraveenaciropaco juno null, [facility] 2 15:02:57 Problem Notes None recorded. Procedures Surgical History Date Name Laterality Status Provider Name and Address Organization Details Recorded Time 4 IUD Insertion completed Juan Ross MD [address], [place], [address], [facility] 12/18/2023 15:55:29 4 Date of Last Pap Smear completed Azra Salamanca [facility] 12/18/2023 14:50:51 repair of cleft lip completed Leny Obrien [facility] 01/09/2020 10:40:59 Imaging Results None recorded. Procedure Notes None recorded. Medical Equipment None Reported. Allergies No known drug allergies Medications Name Sig Start Date Stop Date Status Note LastModified by Organization Details LastModified Time Mirena 21 mcg/24 hr (up to 8 years) 52 mg intrauter ine device Take 1 device by intraute rine route. 08/09/ 2024 active Not Available Not Available Not Avai lable FreeStyle Lancets 28 gauge 06/20 completed Not Available Not Available Not Available cephalexi n 500 mg capsule TAKE 1 CAPSULE BY MOUTH EVERY 12 HOURS 11/19 completed Not Available Not Available Not Available ergocalci ferol (vitamin D2) 1,250 mcg (50,000 unit) capsule TAKE 1 CAPSULE BY MOUTH EVERY WEEK 11/18 completed Not Available Not Available Not Available norethind domingo (contrace ptive) 0.35 mg tablet TAKE 1 TABLET BY MOUTH EVERY DAY 11/18 completed Not Available Not Available Not Available Advil active Not Available Not Availa ble Not Available FreeStyle Lite Meter kit 06/20 completed Not Available Not Available Not Available FreeStyle Lite Strips 06/20 completed Not Available Not Available Not Available + DHA 28 mg iron-975 mcg-200 mg oral pack take 1 tablet by by mouth route every day 11/18 completed Not Available Not Available Not Available PrePlus 27 mg iron-1 mg tablet take 1 tablet by oral route every day 01/05 completed Not Available Not Available Not Available Virt-C DHA 35 mg-1 mg-200 mg capsule TAKE ONE CAPSULE BY MOUTH EVERY DAY 11/19 completed Not Available Not Available Not Available Fora Q39-R66-C 10-D20 strips-la ncets 30 gauge combo pack Checking BS QID fasting and 1hr pp 11/19 completed Prescrib ed Elsewher e: No Locat ion: [facility] M odify By: jlgreen Thaddeus dawkins DateTime : 12/10/19 09:20:41 AM Not Available Not Available Not Available Slynd 4 mg (28) tablet Take 1 tablet every day by oral route. 11/19 completed Not Available Not Available Not Available Vitals Date Recorded Body height Body mass index (BMI) Body weight Systolic And Diastolic Systolic And Diastolic Provider Name and Address Organization Details Last Updated DateTime 06/28/2021 159.39 cm 33.2 kg/m2 64494.18 g 129/89 mm[Hg] 120/86 mm[Hg] Angie Brown [facility] 2 11:17:47 Date Recorded Body height Body mass index (BMI) Body weight Systolic And Diastolic Provider Name and Address Organization Details Last Updated DateTime 07/10/2021 159.39 cm 33 kg/m2 54379.59 g 130/88 mm[Hg] Renetta Garcia [facility] 07/10/2021 10:43:45 Date Recorded Body height Body mass index (BMI) Body weight Systolic And Diastolic Systolic And Diastolic Provider Name and Address Organization Details Last Updated DateTime 08/12/2021 159.39 cm 33.6 kg/m2 95791.37 g 139/92 mm[Hg] 130/88 mm[Hg] Angie Brown [facility] 2 10:30:36 Date Recorded Body height Body mass index (BMI) Body weight Systolic And Diastolic Systolic And Diastolic Provider Name and Address Organization Details Last Updated DateTime 11/19/2023 159.39 cm 31.8 kg/m2 79589.44 g 137/94 mm[Hg] 126/80 mm[Hg] Patricia Padron [facility] 4 10:46:30 Date Recorded Body height Body mass index (BMI) Body weight Systolic And Diastolic Provider Name and Address Organization Details Last Updated DateTime 12/18/2023 159.39 cm 32.3 kg/m2 73521.22 g 140/99 mm[Hg] Azra Cheikh [facility] 12/18/2023 14:50:14 Social History Question Answer Notes LastModified by Organizat ion Details LastModified Time Tobacco Smoking Status Former Smoker Angie Brown [facility] 08/12/2021 10:31:11 Do You Have An Advance Directive? No Information n ot available 12/06/2020 Are You Blind Or Do You Have Difficulty Seeing? No Information n ot available 12/06/2020 What Is Your Level Of Caffeine Consumption? Moderate Information not available 12/06/2020 How Much Tobacco Do You Chew? None Information not available 12/18/2023 In The 14 Days Before Symptom Onset, Have You Had Close Contact With A Laboratory-confirm ed COVID-19 While That Case Was Ill? No Information n ot available 12/06/2020 In The 14 Days Before Symptom Onset, Have You Had Close Contact With A Person Who Is Under Investigation For COVID-19 While That Person Was Ill? No Information not available 12/06/2020 Have You Been To An Area Known To Be High Risk For COVID-19? No Information not available 12/06/2020 Are You Deaf Or Do You Have Serious Difficulty Hearing? No Information not available 12/06/2020 What Type Of Diet Are You Following? REGULAR Information n ot available 12/06/2020 What Is The Highest Grade Or Level Of School You Have Completed Or The Highest Degree You Have Received? [id number] [email or web address] Information not available 11/19/2023 Are There Any Guns Present In Your Home? No Information not available 12/06/2020 What Was The Date Of Your Most Recent Tobacco Screening? 01/06/2020 Information not available 12/06/2020 Do You Use Protection During Sex? Usually Information not available 12/06/2020 Do You Use Your Seat Belt Or Car Seat Routinely? Yes Information not available 12/06/2020 Do You Have Smoke And Carbon Monoxide Detectors In Your Home? Yes Information not available 12/06/2020 How Much Tobacco Do You Smoke? No Information not available 12/06/2020 Do You Use Sunscreen Routinely? No [email or web address] Information not available 11/19/2023 Have You Used IV Drugs? No Information not available 12/18/2023 Do You Have Difficulty Walking Or Climbing Stairs? No [email or web address] Information not available 11/18/2023 Sex: Unknown Functional Status Question Answer Note LastModified by Organizat ion Details LastModified Time Do you use any illicit or recreational drugs? Yes Information not available 12/18/2023 What is your level of alcohol consumption? None [email or web address] Information not available 01/09/2020 Do you or have you ever used smokeless tobacco? Never used smokeless tobacco Information not available 12/06/2020 Are you able to walk independently without assistance or assistive devices? [email or web address] Information not available 12/06/2020 Are you able to care for yourself independently? 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 No [email or web address] Information not available 11/18/2023 Do you or have you ever used e-cigarettes or vape? Never used electronic cigarettes Information not available 12/06/2020 What is your exercise level? Occasional [email or web address] Information not available 11/19/2023 Mental Status Question Answer Note LastModified by Organization D etails LastModified Time Do you feel stressed (tense, restless, nervous, or anxious, or unable to sleep at night)? [id number] Information not available 12/06/2020 Family History Relationship Description Onset Age of this Age Resolved Age Notes LastModified by Organization Details LastModified Time Father No current problems or disability [email or web address] Not available 05/07 16:21:44 Mother No current problems or disability [email or web address] Not available 05/07 16:21:44 Medical History Condition Response Gestational Diabetes Y Gynecological History Statement/Question Response Abnormal Pap N Flow Moderate Date of LMP 12/15/2023 On BCP's at Conception? N N Was last menstrual period normal Y STIs/STDs N HPV Vaccine N Duration of Flow (days) 5 Current Control Method IUD Age at First Child 32 Are cycles usually normal Y Frequency of Cycle (Q days) 29 Sexually Active? Y Menses Monthly Y Age of first menstrual cycle 13 Date of Last Pap Smear 11/19/2023 Sexual Problems? N LMP Definite N Obstetrics History GPAL:G 2 P 2 0 0 2 Type Value Full Term 2 Living 2 Total 2 Past Encounters Encounter ID Performer Location Encounter Start Date Encounter Closed Date Diagnosis/Indication Diagnosis SNOMED-CT Code Diagnosis ICD10 Code Diagnosis IMO Codes Diagnosis Note [id number] Allegra Dumont CNM [facility] [address] [address] 01/06/2020 14:24:34 01/06/2020 15:15:45 Gynecologic examination 56060683 Z01.419 [id number] Josephine Woodson MD [facility] [address],[place] [address] 11/19/2020 10:52:02 11/19/2020 12:28:58 [id number] Josephine Woodson MD [facility] [address],[place] [address] 11/19/2020 10:53:07 11/19/2020 14:36:36 test positive 410470285 Z32.01 Past pregn estuardo history of gestational diabetes mellitus 884825893 Z86.32 Ex-smoker 9366193 Z87.89 1 Family his tory of cleft palate with cleft lip 471959381 Z82.79 [id number] Juan Ross MD [facility] [address],[place] [address] 12/06/2020 16:30:12 12/06/2020 17:35:45 screening 316457647 Z36.82 [id number] Juan Ross MD [facility] [address],[place] [address] 12/06/2020 16:31:00 12/06/2020 17:50:13 Routine care 312849379 Z36.0 [id number] Juan Ross MD [facility] [address],[place] [address] 12/19/2020 17:41:02 12/21/2020 10:30:18 Flank pain 471288705 R10.9 [id number] [facility] [address],[place] [address] 01/01/2021 16:06:52 01/02/2021 14:59:19 Routine care 795138999 Z34.92 [id number] Josephine Woodson MD [facility] [address],[place] [address] 02/12/2021 15:57:58 02/12/2021 17:44:18 screening for malformation 285607988 Z36.3 [id number] Josephine Woodson MD [facility] [address],[place] [address] 02/12/2021 16:03:38 02/12/2021 17:37:56 Past history of gestational diabetes mellitus 987082511 Z86.32 Routine an tenatal care 721227042 Z34.82 [id number] Shira Moseley [facility] [address],[place] [address] 03/12/2021 09:46:05 03/12/2021 10:36:37 Routine care 756751418 Z34.92 [id number] Josephine Woodson MD [facility] [address],[place] [address] 03/26/2021 16:07:34 03/26/2021 17:10:25 Routine care 370846466 Z34.82 [id number] Josephine Woodson MD [facility] [address],[place] [address] 04/09/2021 15:58:24 04/09/2021 16:18:00 Routine care 224464129 Z34.82 [id number] Shira Moseley [facility] [address],[place] [address] 04/23/2021 16:10:27 04/23/2021 16:40:10 Routine care 286357296 Z34.92 [id number] Shira Moseley [facility] [address],[place] [address] 05/07/2021 16:07:49 05/07/2021 16:36:24 Routine care 687955715 Z34.92 [id number] MD Alton Auguste [address],[place] [address] 05/23/2021 09:24:45 05/23/2021 10:28:35 Routine care 519439412 Z36.0 [id number] MD Alton Auguste [address],[place] [address] 05/28/2021 15:59:37 05/28/2021 16:56:30 Uterine size for dates discrepancy 435884711 O26.843 Z3A.37 [id number] Juan Ross MD [facility] [address],[place] [address] 05/30/2021 09:26:47 05/30/2021 10:10:21 Routine care 370894444 Z36.0 [id number] Juan Ross MD [facility] [address],[place] [address] 05/30/2021 12:55:17 05/30/2021 14:35:42 Reduced movement 267714599 O36.8199 [id number] [facility] [address],[place] [address] 06/06/2021 09:30:18 06/06/2021 10:19:32 Routine care 635528544 Z34.92 [id number] Juan Ross MD [facility] [address],[place] [address] 06/06/2021 09:26:27 06/06/2021 10:02:56 Large for gestation age fetus 775547639 O36.63X0 Z3A.38 O40.3XX0 [id number] [facility] [address],[place] [address] 06/20/2021 10:18:08 06/28/2021 12:58:37 [id number] [facility] [address],[place] [address] 06/20/2021 10:22:31 06/20/2021 10:36:55 -induced hypertension 2073687870 9100 O13.9 Doing well. BP still elevated but did improve with recheck. Discussed precaution s in detail with patient. She will let us know right away if any symptoms. Will check bp at home and notify us if above 140/90. If over 160/100 she will go in to hospital. [id number] Juan Ross MD [facility] [address],[facility] [place] [address] 06/28/2021 10:45:17 06/28/2021 11:37:21 -induced hypertension 4029809730 9100 O13.9 This patient is a 35-year-ol d female presents for follow-up on gestationa l hypertensi on that was in the . She has no complaints . Her blood pressure is normal today. We talked about the baby. We talked about her experience here at the [facility]. She is pleased and will forward to 4 week visit. [id number] Shira Moseley CNM [facility] [address],[place] [address] 07/10/2021 10:33:35 07/10/2021 14:12:20 state 88463324 Z39.2 Continue to watch for signs/symp toms of post depression . Return one year from last pap smear for a well woman exam. Will schedule wwe in August. Due for pap. No history of abnormal. Patient received above instructio ns, and questions have been answered. If you have any questions please call or respond to this email. Patient was made aware of the patient portal and may obtain a paper copy of today's plan if desired [facility] ion care management 928571389 Z30.9 Pt would like to start p.o.p. Discussed importance of taking at the same time every day. Also informed that it may not be as effective as estrogen containing pills. [id number] Juan Ross MD [facility] [address],[facility] [address] 08/12/2021 10:01:34 08/12/2021 10:50:31 Routine care 509103660 Z36.0 This patient is here for her annual exam. A thorough history was taken. A physical exam was performed. Age appropriat e routine health screening was ordered, performed, and discussed. Recommende d testing was ordered. She was asked to follow up in one year. She will be informed of any test results. Cholestero l - today Pap - today Gynecologi c examination 65247429 Z01.419 [id number] GOLDEN Angulo [facility] [address] [address] 11/19/2023 09:55:52 11/19/2023 11:08:53 Gynecologic examination 85267558 Z01.419 Z11.51 WWEpap updateddec lined STI screenenco uraged annual exam with PCP It is strongly advised to have an annual flu shot and up can obtain at most pharmacies . If you have not had a TDap shot in the last 10 years you should obtain one as well. Discussed with patient & provided with informatio n regarding HPV vaccine if applicable . Encourage safe sexual practices, to use condoms and limit partners if not already in a monogamous relationsh ip. Do monthly self breast exams. BRCA testing is now available for patients with strong genetic history of female cancer. If interested contact the office. Engage in regular exercise. Avoid tobacco and illicit drugs. This lifestyle behavior pattern will lead to less health conditions and longer life span. If BMI greater than 25 dietary consult advised. Patient received above instructio ns, and questions have been answered. Contracept ion care management 623823809 Z30.9 All BC methods discussed, r/b/a reviewedin t in nexplanon or Mirena IUD, she is aware to call on first day of next period to schedule placementq uestions answered [id number] Juan Ross MD [facility] [address] [address] 12/18/2023 14:42:03 12/18/2023 16:22:28 Contraception care management 222063742 Z30.9 Insertion of intrauterine contraceptive device 05937502 Z30.430 37-year-ol d female who had IUD inserted today. She tolerated the procedure well. No complicati ons. Health Concerns Section Related Observation LastModified by Organization Detai ls LastModified Time None Recorded Concern Status LastModified by Organization Details LastModified Time None Recorded Advance Directives Directive N: Payers Insurance Date Sequence Insurance Name Policy Number Policy Sanchez Covered Member ID Sanchez Member ID Guarantor Name 01/19/2024 1 [employer] (POS II) [id number] Fouzia Colindres [id number] Fouzia Colindres Notes Date Note Type Note Provider Name and Address Organization Details Recorded Time 06/28/19 22 text/htm l This patient is a 35-year-old female presents for follow-up on gestational hypertension that was in the . She has no complaints. Her blood pressure is normal today. We talked about the baby. We talked about her experience here at the [facility]. She is pleased and will forward to 4 week visit. Juan Ross MD [address], [place], [address], [facility] 06/28/2021 11:29:43 07/11/19 22 text/htm l VisitReported by PatientHPIFor associated symptoms, patient reportsno abnormal bleeding,no vaginal discharge,no pelvic pain,laceration well healed,no constipation,no fecal incontinence,no dysuria,no urinary incontinence,no fever,no problems,no mastitis, andnormal mood. Shira bullock, [facility] 07/10/2021 13:41:34 08/13/19 22 text/htm l Annual GYNReported by PatientHistoryFor history, patient reportsno gynecologic complaints.Genitourinary symptomsFor menstrual cycle, patient reportsnormal menses. For urinary symptoms, patient reportsno hematuriaandno incontinence. For vulva, patient reportsno genital lesion. For vagina, patient reportsnormal vaginal discharge.Breast symptomsFor breast, patient reportsno breast pain,no breast lump, andno nipple discharge.ContraceptionFor current contraception, patient reportssatisfied with current contraceptionandoral contraceptives.Endocrine symptomsFor sexual complaints, patient reportsno sexual complaintsandno pain during intercourse.Psychological symptomsFor psychological symptoms, patient reportsno depressionandno anxiety.Preventative measuresFor preventive measures, patient reportsencourage self breast examinationandencourage regular exercise. Juan Ross MD [address], [place], [address], [facility] 08/12/2021 10:48:43 11/19/19 24 text/htm l Annual GYNReported by PatientGenitourinary symptomsFor menstrual cycle, patient reportsnormal menses. For urinary symptoms, patient reportsno hematuriaandno incontinence. For vulva, patient reportsno genital lesion. For vagina, patient reportsnormal vaginal discharge.Breast symptomsFor breast, patient reportsno breast pain,no breast lump, andno nipple discharge.ContraceptionFor current contraception, patient reportscondoms.Endocrine symptomsFor sexual complaints, patient reportsno sexual complaints,no pain during intercourse, andnormal libido. For menopausal symptoms, patient reportsno menopausal symptomsandnormal vaginal lubrication.Psychological symptomsFor psychological symptoms, patient reportsno depression,no anxiety, andno pmdd.Preventative measuresFor preventive measures, patient reportsencourage self breast examination,encourage regular exercise,encourage no tobacco use, andencourage regular mammograms starting age 40.37yo WWEno h/o abnormal papslast pap 2021 - nilm, HPV (-)BC - condoms/withdrawalwants to discuss options, was on an OCP but would forget to take them GOLDEN Angulo [address], [place], [address], [facility] 11/19/2023 11:08:10 12/18/19 24 text/htm l Patient presents for IUD insertion. I described the procedure to the patient in detail. She she understands the risks, benefits, and alternatives. She has completed the informed consent process and is ready to proceed. Juan Ross MD [address], [place], [address], [facility] 12/18/2023 15:56:11 OBGyn Episode Ob Episode Information Episode Created Date Number of Fetuses Patient Bloodtype Patient rh Status Prepregnancy Weight lbs Domestic Partner Domestic Partner Phone Father Name Practice Administrator Status 01/09/20 20 1 CLOSED Fetus Data First Name Last Name Admitted to NICU Weight (g) Sex Living Outcome Pediatric Complications Fetus ID Race Codes Race Delivery Type 3713.55 7704 F Full Term [id number] Vaginal Delivery Rafael Calculation Initial Rafael Date Initial Exam Date Initial Exam Provider Initial Ultrasound Date Last Menstrual Period Date Ultra Sound Weeks Gestation 0 Eighteen To Twenty Week Rafael Update Ultra Sound Date Fundal Height At Umbil Quickening Date Ultra Sound Latest Weeks Gestation Final Rafael Confirmed By Final Rafael Confirmed Date Final Rafael Date Ultra Sound Latest Days Gestation 0 0 Menstrual History Last Menstrual Date Menses Monthly On Bcp Conception Prior Menses Frequency Hcg Plus Date Menarche Onset Age Delivery Information Delivery Date Delivery Type Labor Anesthesia Weeks Gestation Incision Type Labor Labor Length Hrs Delivered By Post Complications Tubal Sterilization Discharge Date Comments 9 37.3 [place] Discharge Information Feeding Method Contraceptive Method Maternal HG B and HCT Levels Ob Episode Information Episode Created Date Number of Fetuses Patient Bloodtype Patient rh Status Prepregnancy Weight lbs Domestic Partner Domestic Partner Phone Father Name Practice Administrator Status 12/07/19 21 1 O Positive 169 CLOSED Fetus Data First Name Last Name Admitted to NICU Weight (g) Sex Living Outcome Pediatric Complications Fetus ID Race Codes Race Delivery Type 4082.32 8 M true Full Term terminal meconium [id number] Vaginal Delivery Problems Problem Notes CF/SMA NEG in 2019 Problem Name Start Date End Date Resolution Snomed Code Not 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 Large for gestation age fetus [id number] Past history of gestational diabetes mellitus 11/19/2020 [id number] early gct screening @ 26wks WNL Rafael Calculation Initial Rafael Date Initial Exam Date Initial Exam Provider Initial Ultrasound Date Last Menstrual Period Date Ultra Sound Weeks Gestation 06/17/2021 12/06/2020 11/19/2020 09/10/2020 10 Eighteen To Twenty Week Rafael Update Ultra Sound Date Fundal Height At Umbil Quickening Date Ultra Sound Latest Weeks Gestation Final Rafael Confirmed By Final Rafael Confirmed Date Final Rafael Date Ultra Sound Latest Days Gestation 0 [email or web address] 12/06/2020 06/17/19 22 0 Pre- Flowsheet Flowsheet Date 12/06/2020 Santiago Score Blood Edema Fundus Height Fundus Units Glucose Ketones Leukocytes Nitrite Labor Signs Protein Cervic Dilation Cervic Effacement Cervic Station 12 Type Weight in lbs Pre/Post Dialysis Refused Weight 173.456523595457 BP Diastolic BP Location Tested BP Systolic BP Type 80 R arm 129 sitting Fetus Heart Rate Present A 155 Fetus Movement Comments This patient is a 34-year-ol d 2 para 1 at 12 weeks gestation who presents for initial care. She had gestational diabetes that was diet controlled in her previous . She has no complaints today. We will consider early diabetes screening. Will consider when when the hemoglobin A1c returns. Had an uncomplicated vaginal at term previously. Begin routine care. Flowsheet Date 12/19/2020 Santiago Score Blood Edema Fundus Height Fundus Units Glucose Ketones Leukocytes Nitrite Labor Signs Protein Cervic Dilation Cervic Effacement Cervic Station Type Weight in lbs Pre/Post Dialysis Refused BP Diastolic BP Location Tested BP Systolic BP Type Fetus Heart Rate Present Fetus Movement Comments Flowsheet Date 01/01/2021 Santiago Score Blood Edema Fundus Height Fundus Units Glucose Ketones Leukocytes Nitrite Labor Signs Protein Cervic Dilation Cervic Effacement Cervic Station trace Type Weight in lbs Pre/Post Dialysis Refused Weight 177.944137539716 BP Diastolic BP Location Tested BP Systolic BP Type 77 114 Fetus Heart Rate Present A 150 Fetus Movement A Yes Comments Doing well. Occasional heada ches. Pt has been taking Advil. Instructed not to take advil, motrin, ibuprofen etc. Discussed use of tylenol with a little caffeine or benadryl if sinus in nature. Having a boy! Unsure about AFP. Will discuss with . Flowsheet Date 02/12/2021 Santiago Score Blood Edema Fundus Height Fundus Units Glucose Ketones Leukocytes Nitrite Labor Signs Protein Cervic Dilation Cervic Effacement Cervic Station Type Weight in lbs Pre/Post Dialysis Refused BP Diastolic BP Location Tested BP Systolic BP Type Fetus Heart Rate Present Fetus Movement Comments Flowsheet Date 02/12/2021 Santiago Score Blood Edema Fundus Height Fundus Units Glucose Ketones Leukocytes Nitrite Labor Signs Protein Cervic Dilation Cervic Effacement Cervic Station neg none trace Type Weight in lbs Pre/Post Dialysis Refused Weight 185.360757801382 BP Diastolic BP Location Tested BP Systolic BP Type 82 121 Fetus Heart Rate Present A 140 Fetus Movement A Yes Comments Doing well, no concerns. US today anatomy complete and wnl, does have B double Marcela, discussed normal variant. Declines AFP since anatomy US without concerns. h/o GDM- will do GCT next visit at 26 weeks. Discussed and encouraged flu shot, discussed Tdap, encouraged after 27 weeks. Flowsheet Date 03/12/2021 Santiago Score Blood Edema Fundus Height Fundus Units Glucose Ketones Leukocytes Nitrite Labor Signs Protein Cervic Dilation Cervic Effacement Cervic Station none 26 Type Weight in lbs Pre/Post Dialysis Refused Weight 194.949730127148 BP Diastolic BP Location Tested BP Systolic BP Type 82 139 Fetus Heart Rate Present A 145 Fetus Movement A Yes Comments Doing well. Carpal tunnel. U sing braces and it is helping. 1 hour today d/t history of gdm. Having a boy. Has had covid vaccine. Planning to get flu and tdap also. Flowsheet Date 03/26/2021 Santiago Score Blood Edema Fundus Height Fundus Units Glucose Ketones Leukocytes Nitrite Labor Signs Protein Cervic Dilation Cervic Effacement Cervic Station neg trace 30 trace Type Weight in lbs Pre/Post Dialysis Refused Weight 196.472590585770 BP Diastolic BP Location Tested BP Systolic BP Type 81 123 Fetus Heart Rate Present A 140 Fetus Movement A Yes Comments Doing well. GCT wnl. Will do flu and Tdap before next visit. Carpal tunnel is tolerable. Flowsheet Date 04/09/2021 Santiago Score Blood Edema Fundus Height Fundus Units Glucose Ketones Leukocytes Nitrite Labor Signs Protein Cervic Dilation Cervic Effacement Cervic Station trace 34 Type Weight in lbs Pre/Post Dialysis Refused Weight 198.716519087630 BP Diastolic BP Location Tested BP Systolic BP Type 80 128 Fetus Heart Rate Present A 125 Fetus Movement A Yes Comments Doing great, no cocnerns. Fl u and Tdap done, doing COVID booster this weekend. Flowsheet Date 04/23/2021 Santiago Score Blood Edema Fundus Height Fundus Units Glucose Ketones Leukocytes Nitrite Labor Signs Protein Cervic Dilation Cervic Effacement Cervic Station none 34 none trace Type Weight in lbs Pre/Post Dialysis Refused Weight 198.148861881948 BP Diastolic BP Location Tested BP Systolic BP Type 79 117 Fetus Heart Rate Present A 154 Fetus Movement A Yes Comments Doing well. Encouraged to sc hedule pre admit. Will complete 28 week labs today. Flowsheet Date 05/07/2021 Santiago Score Blood Edema Fundus Height Fundus Units Glucose Ketones Leukocytes Nitrite Labor Signs Protein Cervic Dilation Cervic Effacement Cervic Station trace 35 none trace Type Weight in lbs Pre/Post Dialysis Refused Weight 206.030155221968 BP Diastolic BP Location Tested BP Systolic BP Type 85 127 Fetus Heart Rate Present A 136 Fetus Movement A Yes Comments Doing well. Encouraged to sc hedule pre admit. No contractions. Flowsheet Date 05/23/2021 Santiago Score Blood Edema Fundus Height Fundus Units Glucose Ketones Leukocytes Nitrite Labor Signs Protein Cervic Dilation Cervic Effacement Cervic Station 39 2cm Type Weight in lbs Pre/Post Dialysis Refused Weight 208.733465750132 BP Diastolic BP Location Tested BP Systolic BP Type 83 R arm 133 sitting Fetus Heart Rate Present A 130 Fetus Movement A Yes Comments patient reports good m ovement. Position of the baby is unknown today on pelvic exam. Palpation of the lower abdomen did not clearly reveal a head. possible larger . We will obtain an obstetric ultrasound for position and estimated weight. Flowsheet Date 05/28/2021 Santiago Score Blood Edema Fundus Height Fundus Units Glucose Ketones Leukocytes Nitrite Labor Signs Protein Cervic Dilation Cervic Effacement Cervic Station Type Weight in lbs Pre/Post Dialysis Refused BP Diastolic BP Location Tested BP Systolic BP Type Fetus Heart Rate Present Fetus Movement Comments Flowsheet Date 05/30/2021 Santiago Score Blood Edema Fundus Height Fundus Units Glucose Ketones Leukocytes Nitrite Labor Signs Protein Cervic Dilation Cervic Effacement Cervic Station neg trace 37 Type Weight in lbs Pre/Post Dialysis Refused Weight 213.137692371080 BP Diastolic BP Location Tested BP Systolic BP Type 79 153 80 140 Fetus Heart Rate Present A 145 Fetus Movement A Yes Comments elevated blood pressures, sh e denies any symptoms of severe preeclampsia, to perform NST, to repeat blood pressures before she leaves. Flowsheet Date 05/30/2021 Santiago Score Blood Edema Fundus Height Fundus Units Glucose Ketones Leukocytes Nitrite Labor Signs Protein Cervic Dilation Cervic Effacement Cervic Station Type Weight in lbs Pre/Post Dialysis Refused BP Diastolic BP Location Tested BP Systolic BP Type Fetus Heart Rate Present Fetus Movement Comments Flowsheet Date 06/06/2021 Santiago Score Blood Edema Fundus Height Fundus Units Glucose Ketones Leukocytes Nitrite Labor Signs Protein Cervic Dilation Cervic Effacement Cervic Station Type Weight in lbs Pre/Post Dialysis Refused BP Diastolic BP Location Tested BP Systolic BP Type Fetus Heart Rate Present Fetus Movement Comments Flowsheet Date 06/06/2021 Santiago Score Blood Edema Fundus Height Fundus Units Glucose Ketones Leukocytes Nitrite Labor Signs Protein Cervic Dilation Cervic Effacement Cervic Station none 39 none trace 2cm 20% -3 Type Weight in lbs Pre/Post Dialysis Refused Weight 211.503268809883 BP Diastolic BP Location Tested BP Systolic BP Type 84 129 Fetus Heart Rate Present Fetus Movement A Yes Comments Doing well. Did have very mi ld poly on u/s today. History of GDM with previous . WIll check a1c. Flowsheet Date 06/20/2021 Santiago Score Blood Edema Fundus Height Fundus Units Glucose Ketones Leukocytes Nitrite Labor Signs Protein Cervic Dilation Cervic Effacement Cervic Station Type Weight in lbs Pre/Post Dialysis Refused BP Diastolic BP Location Tested BP Systolic BP Type Fetus Heart Rate Present Fetus Movement Comments Flowsheet Date 06/20/2021 Santiago Score Blood Edema Fundus Height Fundus Units Glucose Ketones Leukocytes Nitrite Labor Signs Protein Cervic Dilation Cervic Effacement Cervic Station Type Weight in lbs Pre/Post Dialysis Refused Weight 191.221348998943 BP Diastolic BP Location Tested BP Systolic BP Type 91 153 97 144 Fetus Heart Rate Present Fetus Movement Comments Menstrual History Last Menstrual Date Menses Monthly On Bcp Conception Prior Menses Frequency Hcg Plus Date Menarche Onset Age 0509/10/2020 Genetic Screening And Infection History Question Response Note Mental Retardation/Autism false Patient's Age Will Be 35 Years Or Older At Estim ated Date of Delivery false Thalassemia (Korean, Wolof, Mediterranean, Or Background): MCV < 80 false Neural Tube Defect (Meningomyelocele, Spina Bifi da, Or Anencephaly) false Congenital Heart Defect false Down Syndrome false Bunny-Sachs (eg, Sabianist, Cajun, Hebrew-Kuwaiti) f alse [place] Disease false Sickle Cell Disease Or Trait () false Hemophilia Or Other Blood Disorders false Muscular Dystrophy false Cystic Fibrosis false Line [place]'s Chorea false Intellectual Disability/Autism false If Yes, Was Person Tested For Fragile X? false Other Inherited Genetic Or Chromosomal Disorder false Maternal Metabolic Disorder (eg, Type 1 Diabetes , PKU) false Patient Or Baby's Father Had A Child With Defects Not Listed Above false Recurrent Loss, Or A Stillbirth false Medications (including Suppl ements, Vitamins, Herbs, OTC Drugs), Illicit/Recreational Drugs, Alcohol false If Yes, Agent(s) And Strength/Dosage false Any Other Genetic History false Live With Someone With TB Or Exposed To TB false Patient Or Partner Has History Of Genital Herpes false Rash Or Viral Illness Since Last Menstrual Perio d false History Of STD, Gonorrhea, Chlamydia, HPV, Syphi lis false Other Infection History false History of HIV false History of Hepatitis false Prior GBS-infected child false Hemoglobinopathy Or Carrier false Other Structural Defect false Recent Travel History Outside of Country false Delivery Information Delivery Date Delivery Type Labor Anesthesia Weeks Gestation Incision Type Labor Labor Length Hrs Delivered By Post Complications Tubal Sterilization Discharge Date Comments 2 Induce d Regional-Ep idural 39 Shira Lambert CNM double artery Discharge Information Feeding Method Contraceptive Method Maternal HG B and HCT Levels Breast
[2025-02-12 13:41] VITALS: BP 154/107; PULSE 73; RESP 20; TEMP 36.4; O2SAT 100
--- OUTSIDE RECORDS SUMMARY | 2025-02-12 15:28 | XMS_ITS | Clinical Summary ---
Author Organization [facility] Address [address] [address] Care Team Providers Care Attorney At Law Name Role Phone Naveen Diamond MD Primary Care Provider [phone] Source Comments [facility],non-owned Affiliates and Associated Physician Practices is amultiple site organization consisting of ambulatory clinics and hospital sitesin [place], [place], [place] and [place]. This disclosure is being madepursuant to the Care Everywhere program and may not contain all information available regarding this patient. Last updated 18.[facility] Medications * Be aware that medications may [...] on file Legal Sex Female 5:35 PM [employer] Gender Identity Not on file Sexual Orientation [...] age to complete this topic Insurance AETNA AETNA Care Teams Attorney At Law Relationship Specialty Start Date End Date Naveen Diamond MD [address] [place] [id number] PCP - General Family Medicine 12/18/18
[2025-02-12 15:33] VITALS: BP 137/99; PULSE 70; RESP 16; O2SAT 99
[2025-02-12 15:39] LABS: BEDSIDEPREGUCG Negative (Negative)
--- NOTE | 2025-02-12 15:39 | ED.NAVMDI ---
HPI - Nausea/Vomiting/Diarrhea General Chief complaint: Nausea/Vomiting/Diarrhea Stated complaint: NV not able to keep water down Time Seen by Provider: 02/12/25 15:07 Source: patient Mode of arrival: ambulatory Limitations: no limitations History of Present Illness HPI Narrative: Patient is a 39 y/o female who presents to the ED with c/o N/V. Patient reports she believes she ate foul ground beef last night. She developed N/V afterwards and states she has been unable to keep down food or drink for the past 14 hours. Has had 1 episode of diarrhea. States her developed diarrhea as well. Reports some abdominal discomfort related to vomiting. Denies fevers. Denies cough or cold symptoms. Related Data Allergies Allergy/AdvReac Type Severity Reaction Status Date / Time No Known Allergies Allergy Verified 02/12/25 15:33 Review of Systems Review of Systems: All systems reviewed & are unremarkable except as noted in HPI. All systems reviewed & are unremarkable except as noted in HPI and below Exam Narrative: GENERAL: Well appearing, obese with BMI 31.5, non-toxic, in no acute distress. HEAD: Normocephalic, atraumatic. RESPIRATORY: Airway patent, respirations nonlabored. Clear to auscultation bilaterally, no rales, rhonchi, wheezing. CARDIOVASCULAR: Regular rate and rhythm without murmurs, rubs, or gallops. ABDOMINAL: Soft, minimal diffuse tenderness, no significant focal tenderness, nondistended. Normoactive BS. MUSCULOSKELETAL: Moves all extremities. No gross deformities. SKIN: Warm, dry, normal color. NEURO: A&O X3. Speech clear. Cranial nerves II-XII grossly intact. Steady gait. No ataxic movements. PSYCHIATRIC: Appropriate mood and affect. Normal interaction. Course Vital Signs Vital signs: Vital Signs Temperature 97.6 F 02/12/25 13:41 Pulse Rate 73 02/12/25 13:41 Respiratory Rate 20 02/12/25 13:41 Blood Pressure 154/107 H 02/12/25 13:41 Pulse Oximetry 100 02/12/25 13:41 Oxygen Delivery Room Air 02/12/25 13:41 Temperature 98.7 F 02/12/25 19:05 Pulse Rate 78 02/12/25 19:05 Respiratory Rate 15 02/12/25 19:05 Blood Pressure 154/96 H 02/12/25 19:05 Pulse Oximetry 99 10/05/25 19:05 Oxygen Delivery Room Air 02/12/25 13:41 MDM - Nausea/Vomiting/Diarrhea MDM Narrative Medical decision making narrative: Patient presented to ED with nausea, vomiting, concern for food poisoning. Vital signs are stable upon arrival. Patient in no acute distress. Cbc with blood cell count of 15.8. Neutrophil predominance. No bandemia. CMP with sodium of 133. Otherwise stable electrolytes. Stable kidney function. Fluids initiated. UA with trace ketones, 6-10 WBC, no other signs of infection. Sent for culture. CT scan of abdomen/pelvis obtained and without concerning findings. No surgical abnormalities. Patient updated on lab and imaging findings. She is feeling improved after fluids, Zofran, Pepcid. Able to tolerate p.o. intake. Feel she is safe for discharge home at this time. Discussed possibility of gastroenteritis, food poisoning, will discharge with Katty Rdz. Advised to stay well hydrated. Given return precautions. Discharged in stable condition. Medical Records Attestation: I reviewed the patient's medical records. Lab Data Attestation: I reviewed the patient's lab results. 02/12/25 15:36 02/12/25 15:36 Labs: Lab Results 02/12/25 Range/Units 15:36 WBC 15.8 H (4.5-10.0) K/mm3 RBC 4.87 (4.2-5.4) M/mm3 Hgb 14.6 (12.0-15.0) g/dL Hct 42.6 (37.0-47.0) % MCV 87.5 (80-100) fl MCH 30.0 (26-34) pg MCHC 34.3 (32-36) g/dl RDW 11.9 (11.5-14.5) % Plt Count 243 (150-375) k/mm3 MPV 10.5 H (7.4-10.4) fl Immature Gran % (Auto) 0.4 (0-0.5) % Neut % (Auto) 92.2 H (45.5-73.1) % Lymph % (Auto) 4.8 L (18.3-44.2) % [place] % (Auto) 2.5 L (2.6-8.5) % Eos % (Auto) 0.0 (0-4.4) % Baso % (Auto) 0.1 L (0.2-1.2) % Lymph # (Auto) 0.76 L (0.9-3.2) K/mm3 [place] # (Auto) 0.4 (0.1-0.6) K/mm3 Eos # (Auto) 0.0 (0-0.3) K/mm3 Baso # (Auto) 0.0 (0.0-0.1) K/mm3 Abs Immat Gran (auto) 0.06 H (0.00-0.031) K/mm3 Absolute Neuts (auto) 14.5 H (1.3-6.7) K/mm3 Absolute Nucleated RBC 0.000 (0.0-0.012) K/mm3 Nucleated RBC % 0.0 (0.0-0.2) % Sodium 133 L (137-145) mmol/L Potassium 3.8 (3.4-5.0) mmol/L Chloride 96 L (98-107) mmol/L Carbon Dioxide 25 (22-30) mmol/L Anion Gap 12 (4-12) mmol/L BUN 13 (7-17) mg/dL Creatinine 0.58 L (0.7-1.0) mg/dL Estim Creat Clear Calc 108 ml/min Estimated GFR > 60 (59 - ) Glucose 123 H (65-110) mg/dL Calcium 9.7 (8.4-10.2) mg/dL Total Bilirubin 1.2 (0.2-1.3) mg/dL AST 29 (14-36) U/L ALT 27 (6-35) U/L Alkaline Phosphatase 103 (38-126) U/L Total Protein 9.2 H (6.3-8.2) g/dL Albumin 5.1 (3.5-5.1) g/dL Lipase 105 (23-300) U/L Urine Color Yellow (Yellow) Urine Appearance Clear (Clear) Urine pH 6.5 (5.0-9.0) Ur Specific [place] 1.033 (1.001-1.035) Urine Protein 2+ H (Negative) mg/dL Urine Glucose (UA) Negative (Negative) mg/dL Urine Ketones Trace H (Negative) mg/dL Ur Blood (Man) Negative (Negative) Urine Nitrate Negative (Negative) Urine Bilirubin Negative (Negative) Urine Urobilinogen 1.0 (<2.0) mg/dL Leukocyte Esterase Rfl Negative (Negative) BECKY/UL Urine RBC 3-5 H (0-2) /hpf Urine WBC 6-10 H (0-3) /hpf Ur Squamous Epith Cells None seen (Few) /hpf Urine Bacteria None seen /hpf Urine Casts 3-5 POC Urine HCG, Qual Negative (Negative) Imaging Data Attestation: I personally reviewed and interpreted this imaging study as follows: Radiologist's impression: ITS Impressions Abdomen/Pelvis CT 02/12/25 16:48 IMPRESSION: Right renal calculi. No hydronephrosis or hydroureter. Discharge Plan Discharge Clinical Impression: Dehydration Nausea and vomiting Qualifiers: Vomiting type: unspecified Qualified Code(s): R11.2 - Nausea with vomiting, unspecified Patient Disposition: Home Condition: Stable Instructions: Antibiotic Form, Dehydration (ED), Acute Nausea and Vomiting (ED), Food Poisoning (ED) Additional Instructions: Utilize zofran as needed for further nausea. Recommend Tylenol, Bentyl as needed for further abdominal discomfort. Increase fluid intake. Recommend electrolyte rich fluids, gatorade, pedialyte, body armour. Recommend clear liquids or bland diet until symptoms improve, such as bananas, rice, applesauce, toast, or crackers. Follow up with your primary care doctor for further evaluation. Return to the ED if you experience worsening or severe symptoms, unable to keep down food or drink, severe pain, fevers, rectal bleeding, vomiting blood, or any other symptoms of concern. Patient Language: Senegalese Prescriptions: New ondansetron 4 mg tablet,disintegrating 4 mg PO Q8H PRN (Reason: nausea and vomiting) Qty: 15 0RF dicyclomine 20 mg tablet 20 mg PO TID PRN (Reason: Abdominal Discomfort) Qty: 15 0RF Follow-up/Referrals: Margaux Stevens DO [Primary Care Provider, [facility]] Time of Disposition: 18:40
[2025-02-12 15:42] LABS: Hematocrit 42.6 % (37.0-47.0); Hemoglobin 14.6 g/dL (12.0-15.0); Immature Granulocyte Percent A 0.4 % (0-0.5); Lymphocytes Absolute Auto 0.76 K/mm3 (0.9-3.2); Mean Corpuscular HGB Conc 34.3 g/dl (32-36); Mean Corpuscular Hemoglobin 30.0 pg (26-34); Mean Corpuscular Volume 87.5 fl (80-100); Nucleated Red Blood Cells Absolute Auto 0.000 K/mm3 (0.0-0.012); Nucleated Red Blood Cells Perc 0.0 % (0.0-0.2); Platelet Count Result 243 k/mm3 (150-375); Red Blood Count 4.87 M/mm3 (4.2-5.4); White Blood Count 15.8 K/mm3 (4.5-10.0)
[2025-02-12 15:45] LABS: Add Urine Microscopic? YES; Appearance Urine Clear (Clear); Glucose Urine UA Negative (Negative); Leukocyte Esterase Ur Negative LEU/UL (Negative); Nitrate Urine Negative (Negative); Specific Grav Ur 1.033 (1.001-1.035)
[2025-02-12 15:55] LABS: Alanine Aminotransferase 27 U/L (6-35); Albumin Level 5.1 g/dL (3.5-5.1); Alkaline Phosphatase 103 U/L (38-126); Anion Gap 12 mmol/L (4-12); Aspartate Amino Transferase 29 U/L (14-36); Bilirubin,Total 1.2 mg/dL (0.2-1.3); Blood Urea Nitrogen 13 mg/dL (7-17); Calcium 9.7 mg/dL (8.4-10.2); Carbon Dioxide 25 mmol/L (22-30); Chloride 96 mmol/L (98-107); Estimated CRCL calculation 108 ml/min; Estimated Glomerular Filt Rate > 60; Glucose 123 mg/dL (65-110); Lipase 105 U/L (23-300); Potassium 3.8 mmol/L (3.4-5.0); Sodium 133 mmol/L (137-145); Total Protein 9.2 g/dL (6.3-8.2)
[2025-02-12] MEDS: SODIUM CHLORIDE 0.9% IV 1,000 ML 999 ML IV CONT (16:03)
[2025-02-12 16:05] VITALS: BP 132/94; PULSE 68; RESP 15; O2SAT 100
[2025-02-12] MEDS: FAMOTIDINE 20 MG/2 ML VIAL IV PUSH (16:05)
[2025-02-12] MEDS: ONDANSETRON INJ 4 MG/2 ML VIAL IV PUSH (16:05)
[2025-02-12 17:02] VITALS: BP 149/99; PULSE 77; RESP 15; O2SAT 100
[2025-02-12 19:05] VITALS: BP 154/96; PULSE 78; RESP 15; TEMP 37.1; O2SAT 99
== END 2025-02-12 19:13 | disposition home or self-care (01) ==
PROVIDERS: Emergency Provider Physician Assistant; PCP Family Medicine
DX: R11.2 Nausea with vomiting, unspecified (principal); E86.0 Dehydration; N20.0 Calculus of kidney
CPT/HCPCS: 36415; 74177; 80053; 81001; 81025; 83690; 85025; 87086; 96361; 96374; 96375; 99284; J2405; J7030; Q9967

== ENCOUNTER 2025-04-17 14:59 | Emergency (ER) | payer OTHER, SELFPAY ==
--- NOTE | ~2025-04-17 | XR_ITS ---
EXAMINATION: [id number], 04/17/2025 15:35 POULTRY INSEMINATOR HISTORY: FELT POP IN RT RIBS WITH ACUTE COUGH COMPARISON: No comparisons available. Findings: No acute fracture or malalignment. No significant degenerative changes. Soft tissues unremarkable. Impression: No acute fracture or malalignment. Reviewed, dictated and finalized at location P. TRY INSEMINATOR Impression: No acute fracture or malalignment.
[2025-04-17 15:08] VITALS: BP 148/110; PULSE 77; RESP 20; TEMP 36.5; O2SAT 98
--- NOTE | 2025-04-17 15:31 | ED.GENADULT ---
HPI - General Adult General Chief complaint: Unspecified Stated complaint: rib pain when coughing Time Seen by Provider: 04/17/25 15:25 Source: patient, RN notes reviewed and old records reviewed Mode of arrival: ambulatory Limitations: no limitations History of Present Illness HPI narrative: 39 year old female presents to [facility] care with complaints of having a cough for 2 week duration which has started to improve. but reports that she coughed real hard last night and it felt like something popped in her right upper rib area. Patient reports increased pain when she takes a deep breath or coughs. or with certain movements. Patient reports no dyspnea or any known fevers. Patient reports that she hs been taking Tylenol for her discomfort. MD complaint: rib pain when coughing Onset (ago): day(s) (since last evening felt a pop) Location: chest (right upper rib) Severity: mild Treatments prior to arrival: other (Tylenol) Related Data Allergies Allergy/AdvReac Type Severity Reaction Status Date / Time No Known Allergies Allergy Verified 04/17/25 15:15 Review of Systems Review of Systems: CONSTITUTIONAL: Denies fever, chills, or sweats. EYES: Denies visual changes, redness, or discharge. ENT: Denies rhinorrhea, congestion, sore throat, or otalgia. CARDIOVASCULAR: Denies chest pain, palpitations, or edema.reports right upper rib pain after coughing hard last evening, felt a pop RESPIRATORY: reports cough denies dyspnea. GASTROINTESTINAL: Denies abdominal pain, nausea, vomiting, or diarrhea. GENITOURINARY: Denies dysuria or hematuria. SKIN: Denies rash or itching. MUSCULOSKELETAL: Denies back pain, joint pain, or myalgia. NEUROLOGIC: Denies headache, numbness, or weakness. PSYCHIATRIC: Denies anxiety or depression. All systems reviewed & are unremarkable except as noted in HPI and below PMFSH Past Medical History Medical History Hypertension takes no medication Surgical History Surgical History H/O cleft lip repair Social History Social History Smoking status: Never smoker Alcohol intake: current Alcohol use details: socal Substance use type: does not use Living arrangements: with family Gender identity (if verbalized by the patient): Female Comments At time of signature, agree with nursing past medical, surgical, social and family history. There is no relevant family history pertinent to the presenting complaint Exam Narrative: GENERAL: Well-appearing, well-nourished, and in no acute distress. HEAD: Normocephalic, atraumatic. EYES: PERRLA and EOMI. ENT: Nares clear, no rhinorrhea or epistaxis. Mucous membranes moist.TM's normal throat pink with no swelling NECK: Supple. no lymphadenopathy CHEST: Clear to auscultation. No respiratory distress. occasional cough non productive SAO2 98% on room air, Pain to right upper ribs after feeling a pop last night when she coughed hard, increases with deep breathing and cough. denies any dyspnea HEART: Regular rate and rhythm. No murmur heard. Normal peripheral pulses ABDOMEN: Soft, nontender, nondistended, normal active bowel sounds EXTREMITIES: Normal range of motion. No edema. SKIN: Warm, dry, no rash. NEURO: No focal deficits. Alert and oriented x3. Course Course Level of Care: Express Care Visit Vital Signs Vital signs: Vital Signs Temperature 36.5 C 04/17/25 15:08 Pulse Rate 77 04/17/25 15:08 Respiratory Rate 20 04/17/25 15:08 Blood Pressure 148/110 H 04/17/25 15:08 Pulse Oximetry 98 04/17/25 15:08 Oxygen Delivery Room Air 04/17/25 15:08 Temperature 36.5 C 04/17/25 15:08 Pulse Rate 77 04/17/25 15:08 Respiratory Rate 20 04/17/25 15:08 Blood Pressure 148/110 H 04/17/25 15:08 Pulse Oximetry 98 04/17/25 15:08 Oxygen Delivery Room Air 04/17/25 15:08 MDM MDM Narrative Medical decision making narrative: 39 year old with right upper rib pain after hard cough last pm with feeling of pop in right rib area. concerned for rib fracture, chest x-ray showing no rib fracture or degenerative changes. Patient is non- toxic in appearance and suitable for outpatient treatment and follow up . anticipatory guidance and reasons to seek ED care reviewed. Differential Diagnosis Differential Diagnosis: right rib pain, rib fracture, contusion to right rib , costochondritis Imaging Data Attestation: I personally reviewed and interpreted this imaging study as follows: My impression: no acute fracture or mal- alignment Radiologist's impression: ITS Impressions Ribs w/Chest X-Ray 04/17/25 15:44 Impression: No acute fracture or malalignment. [facility] [address] [place] [address] XRay Report Signed Patient: Fouzia Colindres : 1985 MR#: [id number] Age: 39 Acct:[id number] Loc: [facility] ADM Date: 04/17/[address]: Ordering Physician: Nathalie Marinelli APRN Date of Service: 04/17/25 Procedure(s): XR ribs RT w PA CXR Accession Number(s): [id number] cc: CLASSIFIED COPY CONTROL CLERK PHYSICIAN; Nathalie Marinelli APRN~ EXAMINATION: [id number], 04/17/2025 15:35 ENTREPRENEURSHIP PROGRAM DIRECTOR HISTORY: FELT POP IN RT RIBS WITH ACUTE COUGH COMPARISON: No comparisons available. Findings: No acute fracture or malalignment. No significant degenerative changes. Soft tissues unremarkable. Impression: No acute fracture or malalignment. Reviewed, dictated and finalized at location P. EPRENEURSHIP PROGRAM DIRECTOR Please be advised this is a medical document. It is intended for [id number] communication. It is written in medical language and may contain unfamiliar abbreviations or verbiage. Medical documents are intended to carry relevant information, facts as evident, and the clinical opinion of the practitioner at the time of the encounter. This report may have been done utilizing a voice recognition system. Attempts have been made to correct errors. However, there may be uncorrected grammatical, spelling, and recognition errors present. The file time of this note does not necessarily represent the time of service. Dictated By: Cain Stern MD 04/17/25 1544 Signed By: <Electronically signed by Cain Stern MD in OV> Critical Care Time Critical Care Time Critical Care Time: No Discharge Plan Discharge Clinical Impression: Rib pain on right side Patient Disposition: Home Condition: Stable Instructions: Rib Contusion (ED) Additional Instructions: Tylenol for lesser pain Ibuprofen regularly for the next 2-3 days for the inflammation 400- 600mg orally with food 3 times a day with food for the next 3 days Prednisone 40 mg take as ordered for the next 5 days with food Follow-up with PCP if further problems or concerns Ice to the area 20-30 minutes 4-6 times a day Elevate above heart If your symptoms persist, change or worsen significantly before you can contact your personal physician then please, without delay, go to the emergency department for further evaluation. Follow-up with PCP in 7-10 days or sooner if needed Follow up with PCP soon in regards to your blood pressure which is elevated above threshold for referral. Blood pressure above 120/80 may indicate pre-hypertension.148/110 Patient Language: [place] Prescriptions: New prednisone 20 mg tablet 40 mg PO DAILY 5 Days Qty: 10 0RF Follow-up/Referrals: PHYSICIAN,CLASSIFIED COPY CONTROL CLERK [Primary Care Provider, Internal Medicine] Time of Disposition: 16:00 Quality Whately Coma Scale Eyes: Open Verbal: Oriented and Alert Motor: Follows Commands Whately Coma Total Score: 15
== END 2025-04-17 16:05 | disposition home or self-care (01) ==
PROVIDERS: Emergency Provider Registered Nurse
DX: R07.89 Other chest pain (principal)
CPT/HCPCS: 71101; 99213; G0463